=== PATIENT | male | born 1960 | race Caucasian/White ===

== ENCOUNTER 2021-06-25 20:46 | Emergency (ER) | payer MEDICAID ==
[~2021-06-25] VITALS: Ht 170.2 cm; Wt 79.4 kg
--- NOTE | 2021-06-25 20:59 | NUR ---
PT AAOX4. BIBFAMILY C/O LEFT FLANK PAIN SINCE X1 WEEK AGO WITH WORSENING PAIN TODAY. PLACED IN BED 10 ON MONITOR AND PULSE OX. AWAITING ER MD FOR EVAL AND ORDERS.
[2021-06-25] MEDS ORDERED: KETOROLAC TROMETHAMINE 15 MG/ML VIAL ONE (21:15)
--- NOTE | 2021-06-25 21:19 | NUR ---
RADIOLOGY AT BEDSIDE FOR XRAY
[2021-06-25] MEDS ORDERED: KETOROLAC TROMETHAMINE INJ 30 MG/ML VIAL IV ONE (21:30)
[2021-06-25] MEDS ORDERED: IV NS 0.9% 1,000 ML BAG IV ONE (21:30)
--- NOTE | 2021-06-25 21:49 | NUR ---
BROUGHT TO CT AND BACK
[2021-06-25 22:03] LABS: BASOPHILS # (AUTO) 0.1 K/uL (0.0-0.2); BASOPHILS % (AUTO) 0.7 % (0.0-2.0); EOSINOPHILS % (AUTO) 2.9 % (0.0-6.0); HEMATOCRIT 44 % (39-51); HEMOGLOBIN 14.9 g/dL (13.5-17.5); LYMPHOCYTES # (AUTO) 1.4 K/uL (0.8-4.8); LYMPHOCYTES % (AUTO) 13.1 % (20.0-44.0); MEAN CORPUSCULAR HGB CONC 34 g/dl (31.0-36.0); MEAN CORPUSCULAR VOLUME 83 fL (80-96); MONOCYTES % (AUTO) 18.9 % (2.0-12.0); NEUTROPHILS # (AUTO) 6.9 K/uL (1.8-8.9); NEUTROPHILS % (AUTO) 64.4 % (43.0-81.0); PLATELET COUNT (AUTO) 285 K/uL (150-450); RED BLOOD CELL COUNT(AUTO) 5.32 MIL/uL (4.5-6.0); WHITE BLOOD COUNT (AUTO) 10.8 K/uL (4.3-11.0)
[2021-06-25 22:07] LABS: CALCIUM, SERUM 9.1 mg/dL (8.5-10.1); CARBON DIOXIDE 24 mmol/L (21-32); CHLORIDE 102 mmol/L (98-107); CREATININE 3.2 mg/dL (0.6-1.3); GLUCOSE 105 mg/dL (74-106); POTASSIUM 4.4 mmol/L (3.5-5.1); SODIUM SERUM 139 mmol/L (136-145); UREA NITROGEN, BLOOD 40 mg/dL (7-18)
[2021-06-25 22:13] LABS: ALANINE AMINOTRANSFERASE 28 U/L (12-78); ALBUMIN 3.3 g/dL (3.4-5.0); ALKALINE PHOSPHATASE 79 U/L (46-116); ASPARTATE AMINOTRANSFERASE 20 U/L (15-37); BILIRUBIN,DIRECT 0.2 mg/dL (0.0-0.2); BILIRUBIN,TOTAL 0.6 mg/dL (0.2-1.0); LIPASE 183 U/L (73-393); TOTAL PROTEIN, SERUM 8.1 g/dL (6.4-8.2)
--- NOTE | 2021-06-25 22:43 | NUR ---
SPOKE TO PT'S DAUGHTER REGARDING HOME MEDS. STATED HE TAKES [place] BUT UNABLE TO PROVIDE DOSE. PT'S DAUGHTER WILL CALL THE PT'S FOR MED LIST.
[2021-06-25 22:44] LABS: BILIRUBIN,URINE Negative (NEGATIVE); COLOR,URINE YELLOW (YELLOW); LEUKOCYTE ESTERASE ,URINE Negative (NEGATIVE); NITRITE, URINE Negative (NEGATIVE); PROTEIN,URINE 100 mg/dl (NEGATIVE); UGLUCOSE Negative (NEGATIVE); UROBILINOGEN,URINE 0.2 EU/dL (0.2)
--- NOTE | 2021-06-25 22:49 | NUR ---
REVA LUNA ON THE PHONE FOR DR DR CLEMENT FOR UROLOGY CONSULT
[2021-06-25 22:54] LABS: BACTERIA,URINE Few /HPF (None Seen); SQUAMOUS EPITHELIAL CELL,UR Few /HPF (None Seen); WBC,URINE 0-2 /HPF (0-3)
[2021-06-25 23:09] LABS: EOSINOPHILS % (MANUAL) 1 % (0-4); LYMPHOCYTES % (MANUAL) 17 % (16-48); MONOCYTES % (MANUAL) 17 % (0-11.0); NEUTROPHILS % (MANUAL) 65 (42-76)
[2021-06-25] MEDS ORDERED: CEFU500T66 PO (23:18)
[2021-06-25] MEDS ORDERED: ONDA4TAB5 PO (23:18)
[2021-06-25] MEDS ORDERED: TAMS-12 PO (23:18)
[2021-06-25] MEDS ORDERED: HYDR-4209 PO (23:18)
[2021-06-25] MEDS ORDERED: CEFTRIAXONE 1GM BAG (ER ONLY) 0 ML IV ONE (23:22)
[2021-06-25] MEDS ORDERED: CEFTRIAXONE 1 G in IV D5W 50 ML IV ONE (23:30)
--- NOTE | 2021-06-25 23:33 | NUR ---
IV removed. Catheter intact and site benign. Pressure and 4x4 applied to site. No bleeding noted.
--- NOTE | 2021-06-25 23:33 | NUR ---
Patient discharged to home in stable condition. Written and verbal after care instructions given. Patient verbalizes understanding of instruction and RX. Pt ambulated out of ED. VSS.
[2021-06-25 23:34] VITALS: BP 125/75
== END 2021-06-25 23:34 | disposition home or self-care (01) ==
LOC: ER 20:49
DX: N13.2 Hydronephrosis with renal and ureteral calculous obstruction (principal); N17.9 Acute kidney failure, unspecified; D72.821 Monocytosis (symptomatic); R50.9 Fever, unspecified; R51.9 Headache, unspecified; Z20.822 Contact with and (suspected) exposure to COVID-19; R94.31 Abnormal electrocardiogram [ECG] [EKG]; K40.90 Unilateral inguinal hernia, without obstruction or gangrene, not specified as recurrent; I10 Essential (primary) hypertension
CPT/HCPCS: 36415; 71045; 74176; 80048; 80076; 81001; 83605; 83690; 84484; 85007; 85025; 87040 ×2; 87081; 87426; 93005; 96361; 96374; 99285; C9803; J0696; J1885; J7030; J7060

== ENCOUNTER → 2022-10-18 | Emergency (ER) | payer MEDICARE, OTHER ==
[~2022-10-18] VITALS: Ht 167.6 cm; Wt 90.7 kg
[~2022-10-18] MED LIST: CEFU500T66 PO; HYDR-4209 PO; ONDA4TAB5 PO; TAMS-12 PO
[2022-10-18 12:58] VITALS: BP 140/109
== END | disposition home or self-care (01) ==
LOC: ER 13:00
DX: S93.602A Unspecified sprain of left foot, initial encounter (principal); I10 Essential (primary) hypertension; Z60.2 Problems related to living alone; Z79.899 Other long term (current) drug therapy; X50.1XXA Overexertion from prolonged static or awkward postures, initial encounter; Y93.89 Activity, other specified; Y92.89 Other specified places as the place of occurrence of the external cause; Y99.8 Other external cause status
CPT/HCPCS: 73630-TC

== ENCOUNTER 2024-11-08 11:12 | Emergency (ER) | payer MEDICARE, OTHER ==
[~2024-11-08] VITALS: Ht 170.2 cm; Wt 81.6 kg
[2024-11-08] MEDS ORDERED: MORPHINE SULFATE INJ 4 MG/ML DISP.SYRIN ONE (12:31)
[2024-11-08] MEDS ORDERED: dexaMETHasone SOD PHOSPHATE 1 ML ONE (12:31)
[2024-11-08] MEDS: MORPHINE SULFATE INJ 2 MG/ML DISP.SYRIN IM ONE (12:36)
[2024-11-08] MEDS: dexaMETHasone SOD PHOSPHATE 10 MG/ML VIAL IM ONE (12:39)
[2024-11-08] MEDS ORDERED: CYCL5TAB PO (14:06)
[2024-11-08 14:25] VITALS: BP 163/75; TEMP 98.3; O2SAT 98
== END 2024-11-08 14:25 | disposition home or self-care (01) ==
LOC: ER 11:20
DX: M54.50 Low back pain, unspecified (principal); I10 Essential (primary) hypertension
CPT/HCPCS: 99284; 96372; 72100; J1100; J2270

== ENCOUNTER 2024-11-26 11:12 | Emergency (ER) | payer MEDICARE, OTHER ==
[~2024-11-26] VITALS: Ht 177.8 cm; Wt 86.2 kg
[~2024-11-26 11:12] MED LIST changes: +CYCL5TAB PO
[2024-11-26 11:30] VITALS: BP 125/93; TEMP 98.3; O2SAT 99
[2024-11-26] MEDS ORDERED: TRAM50TA2 PO (12:39)
[2024-11-26] MEDS: KETOROLAC TROMETHAMINE 15 MG/ML VIAL IM ONE (12:52)
== END 2024-11-26 12:55 | disposition home or self-care (01) ==
LOC: ER 11:12
DX: M54.31 Sciatica, right side (principal); I10 Essential (primary) hypertension; Z60.2 Problems related to living alone

== ENCOUNTER 2025-07-31 02:00 | Emergency (ER) | payer MEDICARE, OTHER ==
[~2025-07-31] VITALS: Ht 170.2 cm; Wt 83.9 kg
[~2025-07-31 02:00] MED LIST changes: -CYCL5TAB PO; +TRAM50TA2 PO
[2025-07-31] MEDS ORDERED: IBUPROFEN 400 MG TABLET ONE (02:49)
[2025-07-31] MEDS: IBUPROFEN 400 MG TABLET PO ONE (02:50)
[2025-07-31 03:37] VITALS: BP 155/97; TEMP 98.4; O2SAT 97
== END 2025-07-31 03:37 | disposition home or self-care (01) ==
LOC: ER 02:04
DX: M25.562 Pain in left knee (principal); F17.200 Nicotine dependence, unspecified, uncomplicated; I10 Essential (primary) hypertension
CPT/HCPCS: 73564-TC